=== PATIENT | female | born 1975 | race Caucasian/White ===

== ENCOUNTER 2018-05-06 15:27 | Outpatient (CLI) | payer BC | END 2018-05-06 15:28 | disposition home or self-care (01) | LOC: BICMAMMO 15:27 | PROVIDERS: ATTEND Student in an Organized Health Care Education/Training Program | DX: Z12.31 Encounter for screening mammogram for malignant neoplasm of breast (principal) | CPT/HCPCS: 77063; 77067 ==

== ENCOUNTER 2019-05-09 14:51 | Outpatient (CLI) | payer BC ==
--- NOTE | 2019-05-09 16:58 | MMO ---
Bilateral MAMMO Bilat Screen [facility]. CLINICAL HISTORY: Patient is 43 years old and is seen for screening. The patient has no family history of breast cancer. The patient has no personal history of cancer. VIEWS: The views performed were: bilateral craniocaudal with tomosynthesis and bilateral mediolateral oblique with tomosynthesis. FILMS COMPARED: The present examination has been compared to a prior imaging study performed at [facility] on 05/06/2018. MAMMOGRAM FINDINGS: The breasts are heterogeneously dense, which could obscure a lesion on mammography. There are no suspicious masses, suspicious calcifications, or new areas of architectural distortion. IMPRESSION: THERE IS NO MAMMOGRAPHIC EVIDENCE OF MALIGNANCY. A ROUTINE FOLLOW-UP MAMMOGRAM IN 1 YEAR IS RECOMMENDED. THE RESULTS OF THIS EXAM WERE SENT TO THE PATIENT. ACR BI-RADS Category 1 - Negative MAMMOGRAPHY NOTE: 1. A negative mammogram report should not delay a biopsy if a dominant of clinically suspicious mass is present. 2. Approximately 10% to 15% of breast cancers are not detected by mammography. 3. Adenosis and dense breasts may obscure an underlying neoplasm. Reported by: MONIE CONTRERAS MD Electonically Signed: [id number]
== END 2019-05-09 14:52 | disposition home or self-care (01) ==
LOC: BICMAMMO 14:51
PROVIDERS: ATTEND Student in an Organized Health Care Education/Training Program
DX: Z12.31 Encounter for screening mammogram for malignant neoplasm of breast (principal)
CPT/HCPCS: 77063; 77067

== ENCOUNTER 2020-05-14 08:08 | Outpatient (CLI) | payer BC ==
--- NOTE | 2020-05-14 10:25 | MMO ---
Bilateral MAMMO Bilat Screen [facility]. CLINICAL HISTORY: Patient is 44 years old and is seen for screening. The patient has no family history of breast cancer. The patient has no personal history of cancer. VIEWS: The views performed were: bilateral craniocaudal with tomosynthesis and bilateral mediolateral oblique with tomosynthesis. FILMS COMPARED: The present examination has been compared to prior imaging studies performed at [facility] on 05/06/2018 and 05/09/2019. This study has been interpreted with the assistance of computer-aided detection. MAMMOGRAM FINDINGS: The breasts are heterogeneously dense, which could obscure a lesion on mammography. There are no suspicious masses, suspicious calcifications, or new areas of architectural distortion. IMPRESSION: THERE IS NO MAMMOGRAPHIC EVIDENCE OF MALIGNANCY. A ROUTINE FOLLOW-UP MAMMOGRAM IN 1 YEAR IS RECOMMENDED. THE RESULTS OF THIS EXAM WERE SENT TO THE PATIENT. ACR BI-RADS Category 1 - Negative MAMMOGRAPHY NOTE: 1. A negative mammogram report should not delay a biopsy if a dominant of clinically suspicious mass is present. 2. Approximately 10% to 15% of breast cancers are not detected by mammography. 3. Adenosis and dense breasts may obscure an underlying neoplasm. Reported by: LUCIE PENNINGTON MD Electonically Signed: [id number]
== END 2020-05-14 08:09 | disposition home or self-care (01) ==
LOC: BICMAMMO 08:08
PROVIDERS: ATTEND Student in an Organized Health Care Education/Training Program
DX: Z12.31 Encounter for screening mammogram for malignant neoplasm of breast (principal)
CPT/HCPCS: 77063; 77067

== ENCOUNTER 2020-07-23 20:30 | Day surgery (SDC) | payer BC ==
[2020-07-18 10:52] LABS: Mean Corpuscular Hemoglobin 28.3 PG (27.0-33.0); Mean Corpuscular Volume 85.8 fl (80.0-100.0); Mean Platelet Volume 10.9 fl (7.4-10.4); Platelet Count 306 10x3/uL (130-400); RBC Distribution Width 12.7 % (11.5-14.5); Red Blood Cell (RBC) Count 4.59 10x6/uL (3.90-5.20); White Blood Cell (WBC) Count 8.2 10x3/uL (4.5-11.0)
[2020-07-18 11:20] LABS: BHCG - Serum Negative (NEGATIVE); Pregs Control Background? CLEAR/WHITE (CLR/WHITE); Pregs Control Bar Appear? YES (CONTROL BAR)
[2020-07-18 23:00] LABS: SARS-CoV-2 MS2 Positive; SARS-CoV-2 N Gene Negative; SARS-CoV-2 S Gene Negative; SARS-CoV-2 by NAA Not Detected (NotDetected); SARS-CoV-2 orf1ab Negative
[2020-07-22 15:52] VITALS: BMI 38.3
--- NOTE | 2020-07-23 18:57 | OP ---
DATE OF PROCEDURE: 07/23/2020 PREOPERATIVE DIAGNOSES: 1. Pelvic pain. 2. Menorrhagia. POSTOPERATIVE DIAGNOSES: 1. Pelvic pain. 2. Menorrhagia. PROCEDURES PERFORMED: Robotic-assisted total laparoscopic hysterectomy and bilateral salpingectomy. ANESTHESIA: General endotracheal. WARP KNIT OPERATOR SURGEON: Vianney Chao PA-C ESTIMATED BLOOD LOSS: 20 mL. IVF: 1 L of crystalloid. URINE OUTPUT: 210 mL clear urine. COMPLICATIONS: None. DRAINS: Glasgow catheter. PATHOLOGY: Uterus, cervix, bilateral fallopian tubes. FINDINGS: A 13-week size uterus. Normal-appearing cervix and vaginal mucosa. Normal-appearing bilateral fallopian tubes and ovaries. Ureters and bladder intact. Excellent hemostasis. DESCRIPTION OF PROCEDURE: The patient was taken to the operating room where general anesthesia was obtained without difficulty. The patient was prepped and draped in a sterile fashion in dorsal lithotomy position. After placing a Glasgow catheter in the bladder, a speculum was placed in the vagina. The anterior lip of the cervix was grasped with a single-tooth tenaculum. The uterus then sounded to 13 cm, and the cervix was progressively dilated with Filippo dilators. The RADHA manipulator was assembled with a 4-cm ring and a 12-cm tip. The manipulator was inserted into the uterus, and the balloons were inflated. Tenaculum and speculum were removed out of the vagina. Legs were placed in low lithotomy. Attention was turned to the abdomen. A mixture of 0.5% Marcaine plain with 1% lidocaine with epinephrine was infiltrated into the umbilicus just superior to it. A 12-mm skin incision was made, and the Veress needle was passed into the abdomen noting an opening pressure of 2 mmHg, and pneumoperitoneum was obtained. The 12-mm trocar was advanced into the abdomen and confirmed placement with robotic camera. Steep Trendelenburg was obtained. Right and left lower quadrant 8-mm robotic trocars were placed under direct visualization after infiltrating with anesthetic. A right upper quadrant 11-mm port was also placed under direct visualization after infiltrating with anesthetic. The robot was then docked. The right robotic arm contained the monopolar scissors. Left robotic arm contained a fenestrated bipolar. The surgeon console took control. The left fallopian tube was grasped and elevated. The mesosalpinx was cauterized with a fenestrated and incised with the scissors. The medial portion was then cauterized and incised, and left fallopian tube was removed out of the abdomen. The utero-ovarian was cauterized on the left side with the fenestrated and incised with the scissors, and the round ligament was then cauterized and incised in the midportion. The posterior leaf of the broad ligament was then incised with the scissors and cautery. The retroperitoneum was bluntly dissected off the uterine vessels by pushing and spreading with the fenestrated. The anterior leaf of the broad ligament was incised down to the level of the vesicouterine peritoneum. The vesicouterine peritoneum was then tented up, undermining with the fenestrated and incising with the scissors and cautery. Further adventitia of the bladder to the pubocervical fascia was incised carefully with the scissors. Attention was turned to the right side where the right fallopian tube was grasped and elevated. The mesosalpinx was cauterized and incised. The medial portion was cauterized and incised, and then the fallopian tube was removed out of the abdomen. The utero-ovarian was cauterized multiple times on the right side and then incised with the scissors. The round ligament was cauterized in the midportion and incised with scissors. The posterior leaf of the broad ligament was dropped down to the level of the uterosacral. The retroperitoneum was dissected off the uterine vessels and with a brushing motion and a sweeping motion with the fenestrated. The anterior leaf of the broad ligament was incised down to the bladder flap. The vessels were skeletonized bilaterally adequately and cauterized just above the level of the internal cervical os. The bladder flap was then further created by scoring on the pubocervical fascia and bluntly dissecting down distally below the level of the colpotomizer ring. The vessels were then cauterized once again at the uterine artery at the internal cervical os. The colpotomy was performed and completed. The uterus was placed into the vagina. Then, the scissors were traded out for the needle charter coach driver. The cuff was irrigated. Hemostasis was achieved with the fenestrated. The cuff was then closed with a 2-0 barbed Stratafix suture in a running fashion, incorporating vaginal mucosa and posterior peritoneum in each bite and then run back for a second layer. The needle was cut and removed out of the abdomen. The cuff was then irrigated as well as the other additional pedicles at the utero-ovarian ligament. There was slight oozing at the right utero-ovarian pedicle, and this was cauterized and hemostatic. Low pressure check was performed. Hemostasis was noted to be excellent. There was visualization of the ureters bilaterally vermiculating in the pelvic sidewall away from the surgical site. The bladder had no injuries as well. All instruments removed out of the abdomen. Pneumoperitoneum was released. The robot was then docked. The fascia of the camera port was closed with 0 Vicryl in a [id number] fashion. The skin was closed with a 4-0 Monocryl in a subcuticular fashion. Dermabond was applied. The vaginal cuff was checked vaginally and noted to be have excellent closure and hemostasis. All instruments removed from the vagina. The patient tolerated the procedure well. Sponge, lap, and needle counts correct x2. The patient was taken to recovery room in stable condition. The patient received Ancef 2 g prior to the procedure. Job ID: [id number]
[~2020-07-23 20:30] MED LIST: Bupivacaine PF 0.5% 30 ML VIAL ONE; CeleCOXIB 100 MG CAP ONE; Dexamethasone 20 MG/5 ML VIAL ONE; Famotidine/PF 20 mg/2ml Vial ONE; Fentanyl 100 MCG/2 ML VIAL ONE; Fentanyl 250 MCG/5 ML VIAL ONE; Gabapentin 300 MG CAP ONE; Glycopyrrolate 0.2 MG/ML 5 ML SYRINGE ONE; HYDROcodone/Acetaminophen 5/325 mg Tablet ONE; Lidocaine 1% PF 5 ML VIAL ONE; Lidocaine 1% w/Epinephrine 1:100K 20 ML VIAL ONE; Midazolam HCl 2 mg/2 ml Vial ONE; Ondansetron PF 4 MG/2 ML Vial ONE; PROPOFOL 200 MG/20 ML VIAL ONE; Rocuronium Bromide 10 MG/ML (10ML VIAL) ONE; Scopolamine 1.5 mg/72 hour Patch ONE
[2020-07-23] MEDS ORDERED: Zolpidem Tartrate 5 MG TAB PO PRN (20:37)
[2020-07-23] MEDS ORDERED: Acetaminophen 325 MG TAB PO PRN (20:37)
[2020-07-23] MEDS ORDERED: Fentanyl 100 MCG/2 ML VIAL SLOW IVP PRN (20:37)
[2020-07-23] MEDS ORDERED: Ondansetron PF 4 MG/2 ML Vial IVP PRN (20:37)
[2020-07-23] MEDS ORDERED: Bisacodyl 10 MG SUPP PR PRN (20:37)
[2020-07-23] MEDS ORDERED: Promethazine HCl 25 MG/ML VIAL IM PRN (20:37)
[2020-07-23] MEDS ORDERED: HYDROcodone/Acetaminophen 5/325 mg Tablet PO PRN ×2 (20:37)
[2020-07-23] MEDS ORDERED: HYDROcodone/Acetaminophen 5/325 mg Tablet ONE (20:50)
[2020-07-23] MEDS ORDERED: CeleCOXIB 100 MG CAP PO SCH (21:00)
[2020-07-24] MEDS: Sodium Chloride 0.9% 1,000 ML IV SCH ×2 (07:59→08:00)
[2020-07-24] MEDS: Ketorolac Tromethamine 30 MG/ML VIAL IVP SCH (08:00)
--- NOTE | 2020-07-24 08:56 | PDOC.EVN ---
Event Note - Event Note Event Note: POD1 S: No complaints, pain minimal, has not taken anything for pain, ese po. DTV O: VSSAF NAD unlabored resp soft/appttp/inc c/d/i A) POD1 s/p RATLH BS P) DTV once voiding without difficulty can DC home, met all other milestones. FU 2 and 6w postop.
[2020-07-24 11:42] VITALS: BP 115/72; TEMP 98.4
[2020-07-29] MEDS ORDERED: CeleCOXIB 100 MG CAP PO SCH (09:00)
== END 2020-07-24 12:05 | disposition home or self-care (01) ==
LOC: 3SW 20:30 → SDC 20:30
PROVIDERS: ATTEND Student in an Organized Health Care Education/Training Program
PROC: 0UT94ZZ Resection of Uterus, Percutaneous Endoscopic Approach (ICD-10-PCS; principal; 2020-07-23)
PROC: 0UT74ZZ Resection of Bilateral Fallopian Tubes, Percutaneous Endoscopic Approach (ICD-10-PCS; principal; 2020-07-23)
DX: N87.9 Dysplasia of cervix uteri, unspecified (principal); N72 Inflammatory disease of cervix uteri; N80.0 Endometriosis of uterus; D25.9 Leiomyoma of uterus, unspecified; N83.8 Other noninflammatory disorders of ovary, fallopian tube and broad ligament; E66.9 Obesity, unspecified; Z68.38 Body mass index [BMI] 38.0-38.9, adult; Z79.899 Other long term (current) drug therapy; Z88.6 Allergy status to analgesic agent; Z20.828 Contact with and (suspected) exposure to other viral communicable diseases
CPT/HCPCS: 84703; 85027; 86850; 86900; 86901; 87635; 88307; J0690; J1100; J2250; J2405; J2704; J3010; S0020; S0028; U0003